=== PATIENT | male | born 1995 | race American Indian/Alaskan Native ===

== ENCOUNTER 2020-01-04 14:16 | Emergency (ER) | payer SELFPAY ==
[2020-01-04] MEDS ORDERED: levETIRAcetam 1000 MG/NS 0.75% 1,000 MG/100 ML BAG IV ONE (14:56)
[2020-01-04 15:25] VITALS: BP 127/70
--- NOTE | 2020-01-04 15:33 | Emergency Department Report ---
ED Seizure HPI - General Chief Complaint: Seizure Stated Complaint: SEIZURE Time Seen by Provider: 01/04/20 15:32 Source: patient Mode of arrival: Stretcher Limitations: No Limitations - History of Present Illness Initial Comments: 24-year-old male with a past medical history of seizures noncompliant with Keppra 500 mg twice daily presents to the hospital with seizure. Patient complained of a mild abrasion to his tongue but not mercedes laceration or continued bleeding. He denies any pain. - Related Data Previous Rx's Medication Instructions Recorded Last Taken Type levETIRAcetam [Keppra TAB] 500 mg PO BID #60 01/04/20 Unknown Rx Allergies Allergy/AdvReac Type Severity Reaction Status Date / Time No Known Allergies Allergy Verified 01/04/20 14:28 ED Review of Systems ROS: Stated complaint: SEIZURE Other details as noted in HPI Comment: All other systems reviewed and negative ED Past Medical Hx - Past Medical History Previous Medical History?: Yes Hx Seizures: Yes - Surgical History Past Surgical History?: No - Social History Smoking Status: Current Every Day Smoker Substance Use Type: Alcohol - Medications Home Medications: Home Medications Medication Instructions Recorded Confirmed Last Taken Type levETIRAcetam [Keppra TAB] 500 mg PO BID #60 01/04/20 Unknown Rx ED Physical Exam - General Limitations: No Limitations - Other Other exam information: General: No acute distress Head: Atraumatic Eyes: normal appearance ENT: Moist mucous membranes, mild tongue abrasion Neck: Normal appearance, no midline tenderness Chest: Clear to auscultation bilaterally CV: Regular rate and rhythm Abdomen: Soft, normal bowel sounds, nontender, nondistended, no rebound or guarding Back: Normal inspection Extremity: Normal inspection, full range of motion Neuro: Alert O x 3, no facial asymmetry, speech clear, no gross motor sensory deficit Psych: Appropriate behavior Skin: No rash ED Course Vital Signs 01/04/20 01/04/20 14:28 15:23 Temperature 98.4 F Pulse Rate 82 Respiratory 16 14 Rate Blood Pressure 127/70 [Left] ED Medical Decision Making - Medical Decision Making Patient received Keppra 1 g IV and then wanted to leave the department prior to blood draw. Patient declined blood draw and states he needs to leave the department to cloth picker his daughter. Therefore patient was discharged with refill and prescription encouraged to follow - Differential Diagnosis Seizure, noncompliance, electrolyte abnormality Critical Care Time: No Critical care attestation.: If time is entered above; I have spent that time in minutes in the direct care of this critically ill patient, excluding procedure time. ED Disposition Clinical Impression: Seizure, Noncompliance with medication regimen Disposition: TO HOME OR SELFCARE Is pt being admited?: No Does the pt Need Aspirin: No Condition: Stable Instructions: Epilepsy (ED) Additional Instructions: Take the medication as prescribed. Follow-up with your doctor or doctor/clinic provided. Return if symptoms worsen as indicated by your discharge instructions. Prescriptions: levETIRAcetam [Keppra TAB] 500 mg PO BID #60 Referrals: [facility] [Provider Group] - 3-5 Days GREGORY BOLTON MD [Staff Physician] - 3-5 Days (neurologist ) Time of Disposition: 15:33
== END 2020-01-04 15:35 | disposition home or self-care (01) ==
LOC: ED 14:16
DX: G43.909 Migraine, unspecified, not intractable, without status migrainosus (principal); Z91.14 Patient's other noncompliance with medication regimen; F17.200 Nicotine dependence, unspecified, uncomplicated; Z79.899 Other long term (current) drug therapy
CPT/HCPCS: 82962; 96365; 99284; J1953